=== PATIENT | female | born 1945 | race Caucasian/White ===

== ENCOUNTER 2020-12-10 08:11 | Outpatient (CLI) | payer MEDICARE, SELFPAY ==
--- NOTE | ~2020-12-10 | MM_ITS ---
EXAMINATION: MM screening stacy BI w bette HISTORY: Screening TECHNIQUE: Craniocaudal and mediolateral oblique 3-D tomosynthesis images were obtained and synthetic 2-D images were generated. CAD analysis was submitted and interpreted. COMPARISON: Comparison to multiple prior studies sequentially, with oldest reviewed study dated 09/26. BREAST PARENCHYMAL COMPOSITION: There are scattered areas of fibroglandular density. FINDINGS: There is a developing cluster of calcifications in the upper outer quadrant of the left christy ast which have increased in number and density. The right breast is stable without evidence for malig vero. IMPRESSION: 1. Developing left breast calcifications. 2. Magnification views are recommended. BI-RADS Category 0: Incomplete: Needs additional imaging evaluation. Reviewed, dictated and finalized at location A.
== END 2020-12-10 08:12 | disposition home or self-care (01) ==
LOC: ANHIMG 08:14
PROVIDERS: PCP Family Medicine; Visit Provider Family Medicine
DX: Z12.31 Encounter for screening mammogram for malignant neoplasm of breast (principal); R92.8 Other abnormal and inconclusive findings on diagnostic imaging of breast
CPT/HCPCS: 77063; 77067

== ENCOUNTER 2021-01-04 13:37 | Outpatient (CLI) | payer MEDICARE, SELFPAY ==
--- NOTE | ~2021-01-04 | MMUS_ITS ---
EXAMINATION: MM diagnostic mammo unilat LT, US breast LT limited HISTORY: Calcifications, upper outer quadrant of left breast TECHNIQUE: Additional 3-D ML tomosynthesis images of the left breast were performed and synthetic 2-D images were generated. Magnification ML, MLO and cc views of upper outer quadrant CAD analysis was s ubmitted and interpreted. High resolution upper outer quadrant left breast ultrasound was performed. COMPARISON: 05/01/2018 diagnostic left mammogram and limited left breast ultrasound 05/05/2019 left digital screening mammogram 05/15/2019 diagnostic left mammogram 12/10/2020 bilateral digital screening mammogram BREAST PARENCHYMAL COMPOSITION: There are scattered areas of fibroglandular density. FINDINGS: MAMMOGRAPHIC FINDINGS: A cluster of grouped microcalcifications is again noted in the upper outer quadrant of the left breas t is apparent relatively stable compared to 05/05/2019 and were present in 2018 as well. These are li nehemias superficial microcalcifications of fibroadenoma. Ultrasound examination was performed to exclude any upper outer quadrant left breast suspicious mass. ULTRASOUND: There is a 2 mm hypoechoic circumscribed lesion without internal vascularity or posterior shadowing i n the subareolar area of the left breast, probably benign. No other suspicious mass or shadowing is detected. IMPRESSION: 1. Probably benign findings 2. 6 month diagnostic left mammogram and left breast ultrasound follow-up are recommended. BI-RADS category 3, probably benign findings. Reviewed, dictated and finalized at location A. IMPRESSION: 1. Probably benign findings 2. 6 month diagnostic left mammogram and left breast ultrasound follow-up are r ecommended. BI-RADS category 3, probably benign findings.
== END 2021-01-04 13:38 | disposition home or self-care (01) ==
LOC: ANHIMG 13:38
PROVIDERS: PCP Family Medicine; Visit Provider Family Medicine
DX: R92.0 Mammographic microcalcification found on diagnostic imaging of breast (principal)
CPT/HCPCS: 76642; 77065

== ENCOUNTER 2021-07-10 13:52 | Outpatient (CLI) | payer MEDICARE, SELFPAY ==
--- NOTE | ~2021-07-10 | MMUS_ITS ---
EXAMINATION: MM diagnostic stacy LT w bette, US breast LT limited HISTORY: Follow-up left breast calcifications and mass TECHNIQUE: Additional 3-D tomosynthesis images of the left breast were performed and synthetic 2-D im ages were generated. CAD analysis was submitted and interpreted. High resolution Limited left breast ultrasound was performed. COMPARISON: Comparison to multiple prior studies sequentially, with oldest reviewed study dated 10/03. BREAST PARENCHYMAL COMPOSITION: Breast composed of scattered areas of fibroglandular density FINDINGS: MAMMOGRAPHIC FINDINGS: There are no suspicious masses or architectural distortion. There is a cluster of indeterminate calci fications in the upper outer quadrant of the left breast which are not significantly changed from vicky or examination allowing for technique. ULTRASOUND: Limited left breast ultrasound: In the subareolar location of the left breast there is a 2 mm cyst. N o suspicious masses to suggest malignancy. No suspicious masses to suggest malignancy. IMPRESSION: 1. Probable benign left breast calcifications. 2. Recommend 6 month follow-up diagnostic left mammogram BI-RADS category 3, probably benign findings. Reviewed, dictated and finalized at location A. L [employer]ER IMPRESSION: 1. Probable benign left breast calcifications. 2. Recommend 6 month follow-up diagnostic left mammogram BI-RADS category 3, probably benign findings.
== END 2021-07-10 13:53 | disposition home or self-care (01) ==
LOC: ANHIMG 13:53
PROVIDERS: PCP Family Medicine; Visit Provider Family Medicine
DX: R92.8 Other abnormal and inconclusive findings on diagnostic imaging of breast (principal)
CPT/HCPCS: 76642; 77061; 77065; G0279

== ENCOUNTER 2022-01-18 13:19 | Outpatient (CLI) | payer MEDICARE, SELFPAY ==
--- NOTE | ~2022-01-18 | MM_ITS ---
EXAMINATION: MM diagnostic stacy BI w bette HISTORY: Follow-up left breast calcifications TECHNIQUE: Additional 3-D tomosynthesis images of the breasts were performed and synthetic 2-D images were generated. CAD analysis was submitted and interpreted. COMPARISON: Comparison to multiple prior studies sequentially, with oldest reviewed study dated 04/15. BREAST PARENCHYMAL COMPOSITION: Breast composed of scattered areas of fibroglandular density FINDINGS: The right breast is stable without evidence for malignancy. Clustered indeterminate calcifi cations in the upper outer quadrant of the left breast are not significantly changed from prior exami nation. No new masses or architectural distortion. IMPRESSION: 1. Stable likely benign left breast calcifications, upper outer quadrant. 2. Recommend 6 month follow-up diagnostic left mammogram BI-RADS category 3, probably benign findings. Reviewed, dictated and finalized at location A.
== END 2022-01-18 13:20 | disposition home or self-care (01) ==
PROVIDERS: PCP Family Medicine; Visit Provider Nurse Practitioner Gerontology
DX: R92.8 Other abnormal and inconclusive findings on diagnostic imaging of breast (principal)
CPT/HCPCS: 77062; 77066; G0279

== ENCOUNTER 2022-08-22 13:06 | Outpatient (CLI) | payer MEDICARE, SELFPAY ==
--- NOTE | ~2022-08-22 | MMUS_ITS ---
EXAMINATION: MM diagnostic stacy LT w bette, US breast LT limited HISTORY: Six-month follow-up of microcalcifications TECHNIQUE: ML, MLO and CC 3-D tomosynthesis images of the left breast were performed and synthetic 2- D images were generated. ML, MLO and CC magnification views of left breast. CAD analysis was submitte d and interpreted. High resolution breast ultrasound was performed. COMPARISON: Serial mammographic examinations dating back to 05/05/2019 bilateral screening mammogram BREAST PARENCHYMAL COMPOSITION: There are scattered areas of fibroglandular density. FINDINGS: MAMMOGRAPHIC FINDINGS: There are some granular and a linear grouped microcalcifications in the upper outer quadrant of left breast. These have increased slightly in number since 2019. Ultrasound examination today showed no so nographic abnormality of the upper outer quadrant. Stereotactic biopsy is recommended. ULTRASOUND: Real-time imaging of the upper outer quadrant of the left breast reveals no suspicious mass or shadow ing, cyst or other significant sonographic abnormality. IMPRESSION: 1. Indeterminate grouped microcalcifications, upper outer quadrant of left breast, slightly increased in number since 2018 2. Stereotactic biopsy of upper outer quadrant left breast microcalcifications is recommended BI-RADS category 4, suspicious findings. Dr. Reyes telephoned the report and stereotactic biopsy recommendation of the left breast on August 22, 2022 at 1515 hours to DEISY Graham. Reviewed, dictated and finalized at location A. SPINNER IMPRESSION: 1. Indeterminate grouped microcalcifications, upper outer quadrant of left [address] st, slightly increased in number since 2018 2. Stereotactic biopsy of upper outer quadrant left breast microcalcifications is recommended BI-RADS category 4, suspicious findings. Dr. Reyes telephoned the report and stereotactic biopsy recommendation of the le ft breast on August 22, 2022 at 1515 hours to DEISY Graham.
== END 2022-08-22 13:07 | disposition home or self-care (01) ==
LOC: ANHIMG 13:08
PROVIDERS: PCP Family Medicine; Visit Provider Physician Assistant
DX: R92.8 Other abnormal and inconclusive findings on diagnostic imaging of breast (principal)
CPT/HCPCS: 76642; 77061; 77065; G0279

== ENCOUNTER 2022-08-30 12:34 | Outpatient (CLI) | payer MEDICARE, SELFPAY ==
--- NOTE | ~2022-08-30 | MM_ITS ---
EXAMINATION: MM stereotactic bx LT, MM post biopsy diagnostic LT, MM stereotactic specimen LT, Specim en Radiograph, Tissue Marker Clip Placement, Unilateral Mammogram DATE: 08/30/2022 14:16 (accession [id number]), 08/30/2022 14:18 (accession [id number]), 08/30 14:17 (accession [id number]) INDICATION: Abnormal mammogram: Indeterminate grouped microcalcifications, upper outer left breast. TECHNIQUE AND FINDINGS: The risks and potential benefits of the procedure were discussed with the patient and written informe d consent was obtained. Timeout procedure was performed. The patient was placed in the prone position on the dedicated stereotactic table with the left breast in lateral medial compression, and the area of interest was localized and targeted utilizing digital imaging with stereotaxis. After sterile preparation of the skin, 2 % lidocaine was utilized for local anesthesia at the skin pu ncture site and 2 % lidocaine with epinephrine was utilized for deeper local anesthesia/is about the biopsy site. A [employer]G [employer] vacuum assisted biopsy needle was advanced to the level of the grouped calci fications of interest from a cephalad/caudal/medial/lateral approach utilizing stereotactic guidance and a total of 12 tissue core biopsies were obtained. A specimen radiograph demonstrates that the calcifications of interest are included within the tissue cores. A tissue marker clip was then placed at the biopsy site, but the biopsy marker is more infer ior and medial than expected.. A digital mammographic exposure confirmed the successful deployment o f the biopsy marker. The needle was removed and hemostasis was achieved. A sterile bandage was appl ied. The patient tolerated the procedure well and there is no evidence of significant immediate comp lication. The patient was given verbal as well as written postprocedural instructions prior to disch arge from the department. Tissue cores were submitted to surgical pathology for histologic analysis. A 2-view right unilateral digital mammogram was obtained post procedure, demonstrating the tissue mar ker clip in expected position. IMPRESSION: 1. Successful stereotactic biopsy of upper outer quadrant grouped microcalcifications, followed by tissue marker clip placement. Biopsy marker is more inferior and medial than expected. Please refer to pathology report for histologic analysis. Reviewed, dictated and finalized at Location A. Reviewed, dictated and finalized at location A. T COOPER IMPRESSION: 1. Successful stereotactic biopsy of upper outer quadrant grouped microcalcif ications, followed by tissue marker clip placement. Biopsy marker is more inferior and medial than expected. Please refer to pathology report for histologic analysis. IMPRESSION: 1. Successful stereotactic biopsy of upper outer quadrant grouped microcalcif ications, followed by tissue marker clip placement. Biopsy marker is more inferior and medial than expected. Please refer to pathology report for histologic analysis.
== END 2022-08-30 12:35 | disposition home or self-care (01) ==
PROVIDERS: PCP Family Medicine; Visit Provider Family Medicine
DX: R92.8 Other abnormal and inconclusive findings on diagnostic imaging of breast (principal); Z87.898 Personal history of other specified conditions; R92.0 Mammographic microcalcification found on diagnostic imaging of breast
CPT/HCPCS: 19081; 77065; 88305; A4648

== ENCOUNTER 2022-12-05 11:50 | Outpatient (CLI) | payer MEDICARE, SELFPAY ==
--- NOTE | 2022-12-05 13:01 | ECG_ITS ---
Measurements Intervals [place] Rate: 54 P: -22 [place]: 182 QRS: -13 QRSD: 71 T: 41 QT: 414 QTc: 394 Interpretive Statements SINUS BRADYCARDIA BASELINE ARTIFACT- I, II, III, AVR, AVL, AVF BORDERLINE ECG NO PREVIOUS ECG AVAILABLE FOR COMPARISON Electronically Signed On 12-05-2022 13:16:15 CDT by Bc Mcmahan D.O.
[2022-12-05 13:21] LABS: Basophils Absolute Auto 0.1 K/mm3 (0.0-0.1); Basophils Percent Auto 0.9 % (0.2-1.2); Eosinophils Absolute Auto 0.1 K/mm3 (0-0.3); Eosinophils Percent Auto 2.3 % (0-4.4); Hematocrit 45.8 % (37.0-47.0); Hemoglobin 14.5 g/dL (12.0-15.0); Immature Granulocyte Absolute 0.01 K/mm3 (0.00-0.031); Immature Granulocyte Percent A 0.2 % (0-0.5); Lymphocytes Absolute Auto 1.53 K/mm3 (0.9-3.2); Lymphocytes Percent Auto 26.8 % (18.3-44.2); Mean Corpuscular HGB Conc 31.7 g/dl (32-36); Mean Corpuscular Hemoglobin 29.5 pg (26-34); Mean Corpuscular Volume 93.3 fl (80-100); Mean Platelet Volume 9.7 fl (7.4-10.4); Monocytes Absolute Auto 0.5 K/mm3 (0.1-0.6); Monocytes Percent Auto 8.1 % (2.6-8.5); Neutrophils Absolute Auto 3.5 K/mm3 (1.3-6.7); Neutrophils Percent Auto 61.7 % (45.5-73.1); Platelet Count Result 225 k/mm3 (150-375); Red Blood Count 4.91 M/mm3 (4.2-5.4); White Blood Count 5.7 K/mm3 (4.5-10.0)
[2022-12-05 13:34] LABS: Alanine Aminotransferase 19 U/L (6-35); Albumin Level 4.2 g/dL (3.5-5.1); Alkaline Phosphatase 87 U/L (38-126); Anion Gap 3 mmol/L (8-16); Aspartate Amino Transferase 24 U/L (14-36); Bilirubin,Total 0.5 mg/dL (0.2-1.3); Blood Urea Nitrogen 17 mg/dL (7-17); Carbon Dioxide 32 mmol/L (22-30); Chloride 105 mmol/L (98-107); Estimated Glomerular Filt Rate > 60; Glucose 111 mg/dL (65-110); Potassium 5.3 mmol/L (3.4-5.0); Sodium 140 mmol/L (137-145)
[2022-12-05 13:37] LABS: Partial Thromboplastin Time 25.5 SECONDS (22.3-36.8); Prothrombin Time 13.2 Seconds (11.1-14.7)
== END 2022-12-05 11:51 | disposition home or self-care (01) ==
LOC: ANHSURGERY 11:59
PROVIDERS: PCP Family Medicine; Visit Provider Urology
DX: N81.2 Incomplete uterovaginal prolapse (principal); I10 Essential (primary) hypertension; Z01.818 Encounter for other preprocedural examination; R94.31 Abnormal electrocardiogram [ECG] [EKG]
CPT/HCPCS: 36415; 80053; 85025; 85610; 85730; 86850; 86900; 86901; 93005

== ENCOUNTER 2022-12-17 01:39 | Day surgery (SDC) | payer MEDICARE, SELFPAY ==
[2022-12-05 12:11] VITALS: BP 153/76; PULSE 61; RESP 16; TEMP 37.1; O2SAT 96; BMI 22.9
--- NOTE | 2022-12-05 12:26 | PC.NURSE ---
Addendum entered by Mitzi Orona RN 12/05/22 12:58: AMEND-TYPO--HOLD ALL VITAMINS/SUPPLEMENTS 7 DAYS PRE-OP PER DR CANTU(PER PATIENT). LAST DOSE REMAINS ON 12/10/22. Original Note: Report to the Outpatient Waiting Room, entrance under the green pavilion located off [address], at time __6:00AM on date __12/17/22 . Planned Procedure Time: __7:30AM . Time changes happen often and if your time is changed the preop area will call you the afternoon before. - You and your visitor will be asked to self-screen and do not enter if you have any COVID symptoms. - A mask is optional within the hospital at this time. Patients may have clear liquids (water, carbonated beverages, clear teas, apple juice) until 3 hours prior to surgery with a maximum of 20 ounces. - No food from midnight until time of surgery Take the following medications with a SIP of water the morning of surgery: ___LEVOTHYROXINE, METOPROLOL, ALPRAZOLAM NEEDED____ DO NOT STOP ANY OF YOUR OTHER PRESCRIPTION MEDICATIONS PRIOR TO SURGERY ?EXCEPT THE FOLLOWING Medications to discontinue per physician __HOLD ALL VITAMINS/SUPPLEMENTS 3 DAYS PRE-OP Date to take last dose____12/10/22 Please no make-up, nail kenyan, hairspray, perfume, deodorant, or body powder the day of surgery. No jewelry (including any body piercings) or valuables the day of surgery, leave them at home. Please take a shower or bath the night before, or the morning of, surgery with an antibacterial soap. Wear comfortable, loose fitting clothing. Children are encouraged to wear pajamas. - Jewelry must be removed prior to entering the operating room. Rings and piercings that are not removed may be cut off. - The hospital will not accept responsibility for valuables. - Please leave all valuables, including medications, at home the day of surgery. If you are going home after surgery, a licensed bulk delivery driver must drive you home. - NO public transportation without another adult if you receive anesthesia. - We recommend that an adult stay with you for 24 hours following discharge. - We also recommend that you do not drive, make important decision, drink alcoholic beverages, or take any drugs that were not prescribed by your health care provider for at least 24 hours after your discharge time. Follow any additional instructions given to you from your surgeon. If you or anyone in your household have experienced Covid symptoms in the past week, please notify your surgeon or the nurse liaison at the phone number below for possible testing. Telephone instructions given to ___PATIENT and asked if any additional questions and then verbalized understanding. Patient advised to call surgeon office or pre surgery nurse liaison [phone] if any additional questions.
--- NOTE | 2022-12-15 11:33 | PM.IMHP ---
H&P: HPI History of Present Illness Date/Time: 12/15/22 11:33 Chief Complaint: Pelvic organ prolapse Narrative: 77-year-old with uterine prolapse. No stress incontinence by history or urodynamic Review of Systems Review of Systems: All systems reviewed & are unremarkable except as noted in HPI and below PMFSH Past Medical History Medical History Abnormal mammogram Annual physical exam Anxiety disorder, unspecified Atrial tachycardia Benign essential HTN Calcaneal spur of right foot Calculus of gallbladder Chronic erosive gastritis Chronic erosive gastritis Contact dermatitis and eczema due to plant Dizziness RAMEY (dyspnea on exertion) Essential (primary) hypertension JASMIN (generalized anxiety disorder) Gastritis, unspecified, without bleeding Hyperlipidemia Hypothyroidism (acquired) Hypothyroidism (acquired) Left breast mass Mixed hyperlipidemia Mixed hyperlipidemia Pain of right heel Postmenopausal Screening for breast cancer SOB (shortness of breath) Vitamin D deficiency Family History Family History Father Family history of premature coronary heart disease, Onset Age: 49 Patient's father is Family history of cardiovascular disease Mother Hypertension Acute myocardial infarction Social History Social History Social History: Smoking status: Never smoker Second hand tobacco smoke exposure: No Alcohol intake: current Drinks per week: 3 Alcohol use details: Occasionally Substance use: never Substance use type: does not use Living arrangements: with family Additional living arrangements comments: [facility] Occupation/Education: retired Gender identity (if verbalized by the patient): Female Sexual Orientation (if Verbalized by the Patient): Straight or Heterosexual Spiritual care concerns: No Meds Home Medications and Allergies Home Medications Medication Instructions Recorded Confirmed Type metoprolol tartrate 25 mg tablet 25 mg PO BID #180 tabs 08/22/22 12/05/22 Rx alprazolam 0.25 mg tablet 0.25 mg PO BID PRN Anxiety 12/05/22 12/05/22 History atorvastatin 20 mg tablet 20 mg PO HS 12/05/22 12/05/22 History calcium 600 mg capsule 1,200 mg PO DAILY 12/05/22 12/05/22 History ibuprofen 200 mg capsule 200 mg PO Q6H PRN Pain 12/05/22 12/05/22 History levothyroxine 25 mcg tablet 25 mcg PO QAM 12/05/22 12/05/22 History lisinopril 20 mg tablet 20 mg PO QAM 12/05/22 12/05/22 History melatonin 3 mg capsule 3 mg PO HS PRN Insomnia 12/05/22 12/05/22 History omeprazole 20 mg capsule,delayed 20 mg PO QAM 12/05/22 12/05/22 History release Allergies Allergy/AdvReac Type Severity Reaction Status Date / Time doxycycline AdvReac Mild vomiting Verified 12/05/22 12:05 Exam Narrative: cystocele +3 loss of apical support noted Assessment and Plan Assessment and plan (1) Uterine prolapse: Code(s): N81.4 - Uterovaginal prolapse, unspecified Status: Acute Assessment and Plan: robotic supracervical hysterectomy with sacral colpopexy. Understands risks of bleeding, infection damage to surrounding organs, damage to the urinary tract, recurrence of prolapse, postoperative voiding dysfunction including incontinence and retention, recurrence of prolapse, diskitis, hip and leg pain. She agrees to proceed
[2022-12-17] VITALS (9 sets, daily range): BP systolic 127–169; BP diastolic 54–85; PULSE 48–81; RESP 12–18; TEMP 36.1–37; O2SAT 95–100
[2022-12-17] MEDS: ACETAMINOPHEN 500 MG TABLET 1000 MG PO (06:37)
[2022-12-17] MEDS: LACTATED RINGERS 1,000 ML 30 ML IV CONT ×2 (06:40→10:14)
--- NOTE | 2022-12-17 06:49 | WPDANESEPPF ---
Anes - Initial Pre Proc Eval Procedure: Operation Date: 12/17/22 07:30 Proposed Procedures p Robotic Sacrocolpopexy - Jarad Alvarado MD s Urethral Sling - Jarad Alvarado MD s Robotic Assisted Supracervical Hysterectomy, Bilateral Salpingo-oophorectomy - Sean Avery MD Date/Time: 12/17/22 06:49 Surgeon: Jarad Alvarado MD Pre Op Diagnosis: Uterine Prolapse, Midline Cystocele Patient Data Age: 77 Gender: F Height: 1.64 m Weight: 61.6 kg Last Vital Signs Temp 37.1 C 12/05/22 12:11 Pulse 61 12/05/22 12:11 Resp 16 12/05/22 12:11 BP 153/76 H 12/05/22 12:11 Pulse Ox 96 12/05/22 12:11 O2 Del Method Room Air 12/05/22 12:11 Allergies Allergy/AdvReac Type Severity Reaction Status Date / Time doxycycline AdvReac Mild vomiting Verified 12/17/22 06:22 Home Medications Medication Instructions Recorded Confirmed Type metoprolol tartrate 25 mg tablet 25 mg PO BID #180 tabs 08/22/22 12/17/22 Rx alprazolam 0.25 mg tablet 0.25 mg PO BID PRN Anxiety 12/05/22 12/05/22 History atorvastatin 20 mg tablet 20 mg PO HS 12/05/22 12/17/22 History calcium 600 mg capsule 1,200 mg PO DAILY 12/05/22 12/17/22 History ibuprofen 200 mg capsule 200 mg PO Q6H PRN Pain 12/05/22 12/17/22 History levothyroxine 25 mcg tablet 25 mcg PO QAM 12/05/22 12/17/22 History lisinopril 20 mg tablet 20 mg PO QAM 12/05/22 12/17/22 History melatonin 3 mg capsule 3 mg PO HS PRN Insomnia 12/05/22 12/17/22 History omeprazole 20 mg capsule,delayed 20 mg PO QAM 12/05/22 12/17/22 History release Patient hx anesthesia problems: none Family hx anesthesia problems: none Results Review: All pre-operative results and documents have been reviewed as part of the pre-operative evaluation. [facility] Past Medical History Medical History Abnormal mammogram Annual physical exam Anxiety disorder, unspecified Atrial tachycardia Benign essential HTN Calcaneal spur of right foot Calculus of gallbladder Chronic erosive gastritis Chronic erosive gastritis Contact dermatitis and eczema due to plant Dizziness RAMEY (dyspnea on exertion) Essential (primary) hypertension JASMIN (generalized anxiety disorder) Gastritis, unspecified, without bleeding Hyperlipidemia Hypothyroidism (acquired) Hypothyroidism (acquired) Left breast mass Mixed hyperlipidemia Mixed hyperlipidemia Pain of right heel Postmenopausal Screening for breast cancer SOB (shortness of breath) Vitamin D deficiency Surgical History Surgical History (Updated 12/17/22 @ 06:52 by Vlad Rojo MD) H/O thyroidectomy Family History Family History Father Family history of premature coronary heart disease, Onset Age: 49 Patient's father is Family history of cardiovascular disease Mother Hypertension Acute myocardial infarction Social History Social History Social History: Smoking status: Never smoker Second hand tobacco smoke exposure: No Alcohol intake: current Drinks per week: 3 Alcohol use details: Occasionally Substance use: never Substance use type: does not use Living arrangements: with family Additional living arrangements comments: [facility] Occupation/Education: retired Gender identity (if verbalized by the patient): Female Sexual Orientation (if Verbalized by the Patient): Straight or Heterosexual Spiritual care concerns: No Anes - Eval Final PreProcedure Day of Procedure 12/17/22 06:49 Patient weight: normal Heart: regular rate and rhythm Lungs: clear to auscultation Airway: Mallampati scale class II Neurological: alert and oriented Last oral intake: >/= 8 hours ASA classification: II Emergent: no Anesthetic plan: proceed Anesthesia type and monitoring: general ETT and standard monitoring Results Review: All pre-operative results a
--- NOTE | 2022-12-17 07:12 | WPDHPUPDATE1 ---
History and Physical Update Update Date/Time: 12/17/22 07:12 History and Physical has been reviewed, including an updated exam of the patient. There are NO changes in the patient's condition. Risks, benefits, and alternatives have been discussed and questions answered. Patient agrees to proceed with procedure.
[2022-12-17] MEDS: KETOROLAC 15 MG/ML VIAL (*BKC) IV PUSH (07:14)
--- NOTE | 2022-12-17 07:20 | PM.IMHP ---
H&P: HPI History of Present Illness Date/Time: 12/17/22 07:20 Chief Complaint: Here for hysterectomy Narrative: 77 y/o with intermittent bulge sensation. She has no vaginal bleeding. It takes a long time to empty the bladder. She desires surgical management of her problem. Review of Systems Review of Systems: All systems reviewed & are unremarkable except as noted in HPI and below PMFSH Past Medical History Medical History Abnormal mammogram Annual physical exam Anxiety disorder, unspecified Atrial tachycardia Benign essential HTN Calcaneal spur of right foot Calculus of gallbladder Chronic erosive gastritis Chronic erosive gastritis Contact dermatitis and eczema due to plant Dizziness RAMEY (dyspnea on exertion) Essential (primary) hypertension JASMIN (generalized anxiety disorder) Gastritis, unspecified, without bleeding Hyperlipidemia Hypothyroidism (acquired) Hypothyroidism (acquired) Left breast mass Mixed hyperlipidemia Mixed hyperlipidemia Pain of right heel Postmenopausal Screening for breast cancer SOB (shortness of breath) Vitamin D deficiency Surgical History Surgical History H/O thyroidectomy Family History Family History Father Family history of premature coronary heart disease, Onset Age: 49 Patient's father is Family history of cardiovascular disease Mother Hypertension Acute myocardial infarction Social History Social History Social History: Smoking status: Never smoker Second hand tobacco smoke exposure: No Alcohol intake: current Drinks per week: 3 Alcohol use details: Occasionally Substance use: never Substance use type: does not use Living arrangements: with family Additional living arrangements comments: [facility] Occupation/Education: retired Gender identity (if verbalized by the patient): Female Sexual Orientation (if Verbalized by the Patient): Straight or Heterosexual Spiritual care concerns: No Meds Home Medications and Allergies Home Medications Medication Instructions Recorded Confirmed Type metoprolol tartrate 25 mg tablet 25 mg PO BID #180 tabs 08/22/22 12/17/22 Rx alprazolam 0.25 mg tablet 0.25 mg PO BID PRN Anxiety 12/05/22 12/05/22 History atorvastatin 20 mg tablet 20 mg PO HS 12/05/22 12/17/22 History calcium 600 mg capsule 1,200 mg PO DAILY 12/05/22 12/17/22 History ibuprofen 200 mg capsule 200 mg PO Q6H PRN Pain 12/05/22 12/17/22 History levothyroxine 25 mcg tablet 25 mcg PO QAM 12/05/22 12/17/22 History lisinopril 20 mg tablet 20 mg PO QAM 12/05/22 12/17/22 History melatonin 3 mg capsule 3 mg PO HS PRN Insomnia 12/05/22 12/17/22 History omeprazole 20 mg capsule,delayed 20 mg PO QAM 12/05/22 12/17/22 History release Allergies Allergy/AdvReac Type Severity Reaction Status Date / Time doxycycline AdvReac Mild vomiting Verified 12/17/22 06:22 Vital Signs Vital Signs - 24 hr 12/17/22 06:40 Temperature 36.4 C Pulse Rate 62 Respiratory Rate 16 Blood Pressure 152/75 H Pulse Oximetry 98 Oxygen Delivery Room Air Exam Const: Orientation/consciousness: patient oriented x3 Other: Well-developed, well-nourished female in no acute distress. Neck: Thyroid: thyroid normal Lymphatic: no lymphadenopathy noted (in neck, axilla or inguinal nodes) Resp: Effort & Inspection: normal respiratory effort Auscultation: clear to auscultation bilaterally Cardio: Rate: regular rate Rhythm: regular rhythm Heart sounds: S1 normal heart sound present and S2 normal heart sound present GI: Other: ABD: Soft, nontender, nondistended. No guarding or rebound tenderness. No hepatosplenomegaly. : General: Yes no CVA tenderness Other: External genitalia: normal female hair dist
--- NOTE | 2022-12-17 07:24 | WPDHPUPDATE1 ---
History and Physical Update Update Date/Time: 12/17/22 07:24 History and Physical has been reviewed, including an updated exam of the patient. There are NO changes in the patient's condition. Risks, benefits, and alternatives have been discussed and questions answered. Patient agrees to proceed with procedure.
[2022-12-17] MEDS: ceFAZolin 2 GM/D5W 50 ML 2 GM/50 ML BAG IVPB (07:30)
[2022-12-17] MEDS: metroNIDAZOLE 500 MG/ISO 100ML 500 MG/100 ML BAG 100 MG IVPB (07:49)
--- NOTE | 2022-12-17 08:26 | P.OP_ITS ---
Procedure Note - Detailed Date of Procedure 12/17/22 Pre-op Diagnosis Symptomatic pelvic organ prolapse Post-op Diagnosis Same Procedure Performed Robotic assisted supracervical hysterectomy with bilateral salpingooophorectomy. Surgeon Sean Avery MD Anesthesia General Findings Small subserosal myoma. Otherwise, normal-appearing uterus, tubes and ovaries. Description of Procedure The patient was taken to the operating room where general endotracheal ane sthesia was administered. She was prepared and draped in the usual sterile fashion in the dorsal lithotomy position. The bladder was drained with a Bill catheter. Dr. Alvarado placed laparoscopic ports -- please see his note for details. I assumed the console. The ureters were visualized bilaterally. The round ligament on the right was divided. The infundibulopelvic ligament was divided. The broad ligament was divided, skeletonizing and dividing the uterine artery on the right. The bladder was reflected away. The left side was similarly dissected. The uterus was amputated from the cervix. The pelvis was irrigated using warmed normal saline. Rigorous hemostasis was assured. Dr. Alvarado then assumed the console and will record his portion of the procedure under a separate cover. I was present and scrubbed through my entire portion of the procedure. Implants None Estimated Blood Loss 10 Drains Yes (bill) Packing No Pathology Yes (Uterus, bilateral tubes and ovaries.) Complications None Condition Stable Disposition PACU
--- NOTE | 2022-12-17 10:01 | W.PM.PROC2 ---
Procedure Note - Detailed Date of Procedure 12/17/22 Pre-op Diagnosis Uterine Prolapse, Midline Cystocele Post-op Diagnosis Same Procedure Performed Robotic assisted laparoscopic sacral colpopexy Cystoscopy Surgeon Jarad Alvarado MD Anesthesia General Indications This is a woman with uterine prolapse without stress incontinence. She desires surgical correction. She is here for the above. She understands risks of bleeding, infection, diskitis, damage to surrounding organs, bowel injury, bowel obstruction, mesh related complications including exposure and extrusion, postoperative voiding dysfunction including incontinence and retention, need for ancillary procedures, dyspareunia, recurrence of prolapse, and other perioperative intraoperative postoperative complications. She agrees to proceed. Findings See below Description of Procedure She was correctly identified. Informed consent obtained. She from the operating room. She was given general anesthesia. She was given appropriate perioperative antibiotics. She was placed a low lithotomy position. Pressure points were padded. A time-out performed. I marked out the skin 3 fingerbreadths cephalad to the umbilicus. I anesthetized the skin. I incised the skin. I dissected down to the fascia. I grasped the fascia with Hipolito clamps. I entered the fascia sharply in a See type technique. I placed sutures for later fascial closure. I placed a midline trocar. I examined the abdomen. There is no sign of any injury. Under direct vision I placed 2 additional trocars in the right upper quadrant and 2 additional trocars the left upper quadrant. She was placed in steep Trendelenburg. The robot was docked. Her crop puller completed their portion of the procedure. Please see that operative report for details. I then sat at the console. The Sizer in the vagina created plane on the anterior and posterior vaginal wall. I took great care not to injure the vagina, bladder, or rectum. Of note the tissue was quite thin posteriorly. I introduced the mesh into the abdomen. I sewed the anterior leaflet of mesh on the anterior vaginal wall. I sewed the posterior leaflet of mesh on the posterior vaginal wall. This was done with several sutures of 2 0 [place]-Jonathan. I took great care this area due to the thinness of the vaginal wall. I took great care not to go through and through with the suture. I reflected the colon laterally. I opened the posterior peritoneum over the sacral promontory. I carried this into the cul-de-sac. I freed up the edges for later retroperitonealization. I located the anterior longitudinal ligament the sacrum. I cleaned off all fatty tissues. I then tensioned my mesh appropriately. I did a vaginal exam the bedside. I assured prolapse reduction without undue tension. I then sewed the proximal leaflet of mesh onto the anterior longitudinal ligament of the sacrum with several sutures of 2 0 [place]-Jonathan. I then used a 2 0 Monocryl to completely and meticulously retroperitonealized all mesh. I allowed the colon to go back to its normal anatomic location. There is no sign of any impingement. The specimen was then removed. All ports removed. Fascia was tied down. Skin was closed with Monocryl and surgical glue. I then performed cystoscopy. There was no tumors or surgical artifact. Both ureters were seen to excrete clear yellow urine. There is no surgical artifact in the bladder or urethra. I cut the excess sling material. Close incision with glue. She was awakened and transferred to PACU in stable condition. Implants Sacral colpopexy mesh Estimated Blood Loss 20 Packing No Pathology None sent Complications No immediate complications Condition Stable Disposition PACU
--- NOTE | 2022-12-17 11:40 | PC.NURSE ---
This patient, Delia Constantino, was received from PACU on 12/17/22 at 1140. Patient/family oriented to unit policies and routines
[2022-12-17] MEDS: KCL 20 MEQ/D5/0.45% SOD CHL 1,000 ML 100 ML IV CONT ×2 (11:55→22:47)
--- NOTE | 2022-12-17 13:20 | PC.NURSE ---
Pt tolerated clear liquids well, she would like to advance to regular diet.
[2022-12-17] MEDS: lisinopriL 20 MG TABLET PO (13:24)
[2022-12-17] MEDS: ceFAZolin 1 GM/NS 50 ML 1 GM/50 ML BAG IVPB (16:20)
[2022-12-17] MEDS: ACETAMINOPHEN 325 MG TABLET 650 MG PO (16:25)
[2022-12-17] MEDS: MELATONIN 3 MG TABLET PO (22:47)
[2022-12-18 00:10] VITALS: BP 116/64; PULSE 81; RESP 14; TEMP 36.7; O2SAT 95
[2022-12-18 00:13] VITALS: PULSE 81
[2022-12-18] MEDS: METOPROLOL TARTRATE 25 MG TABLET PO ×2 (00:13→09:09)
[2022-12-18] MEDS: ACETAMINOPHEN 325 MG TABLET 650 MG PO ×2 (00:14→09:11)
[2022-12-18] MEDS: ceFAZolin 1 GM/NS 50 ML 1 GM/50 ML BAG IVPB ×2 (00:15→08:34)
[2022-12-18 07:02] VITALS: BP 120/65; PULSE 70; RESP 14; TEMP 36.3; O2SAT 98
[2022-12-18 07:30] VITALS: BP 119/63; PULSE 61; RESP 16; TEMP 36.7; O2SAT 97
--- NOTE | 2022-12-18 07:40 | WPDANESPN ---
Anes - Prog Note Post-Op Date/Time: 12/18/22 07:40 Vital Signs: Last Vital Signs Temp 36.3 C L 12/18/22 07:02 Pulse 70 12/18/22 07:02 Resp 14 12/18/22 07:02 BP 120/65 12/18/22 07:02 Pulse Ox 98 12/18/22 07:02 O2 Del Method Room Air 12/17/22 11:20 O2 Flow Rate 8 12/17/22 10:35 Pain Score (VAS): 0 I/O: Intake & Output 12/17/22 12/17/22 12/18/22 15:59 23:59 07:59 Intake Total 1550 1300 Output Total 350 750 525 Balance 1200 550 -525 Patient Feedback: Patient satisfied with anesthetic care.
--- NOTE | 2022-12-18 08:11 | PM.GYNPNOP ---
MUSHROOM CUTTER - A/P Assessment and plan (1) Uterine prolapse: Code(s): N81.4 - Uterovaginal prolapse, unspecified Status: Acute Assessment and Plan: A: POD#1, s/p robotic assisted supracervical hysterectomy with BSO, sacral colpopexy. Doing well. P: Plan home today to f/u with me in 3 weeks, Dr. Alvarado in 6 weeks. Postoperative Procedures: Procedures Operation Date: 12/17/22 07:30 Actual Procedure Side Surgeon p Robotic Sacrocolpopexy Not Applicable Jarad Alvarado MD s Robotic Assisted Supracervical Hysterectomy, Bilateral Salpingo-oophorectomy Bilateral Sean Avery MD Postoperative day: 1 Time Spent With Patient Time with patient: less than 15 minutes MUSHROOM CUTTER- PN:Subj Post-Op Subjective Date/time seen: 12/18/22 08:11 Interval history: Pain OK. Tolerating diet. Isaac out. Exam Narrative: AVSS I/O OK ABD soft, nontender. Incisions c/d/i. EXT nontender MUSHROOM CUTTER - PN: Obj Data Vital Signs Vital Signs: Vital Signs - 24 hr 12/17/22 10:20 12/17/22 10:35 12/17/22 10:50 Temperature 36.1 C L Pulse Rate 75 48 L 56 L Respiratory Rate 16 16 13 Blood Pressure 169/85 H 168/71 H Pulse Oximetry 100 100 97 Oxygen Delivery Simple Face Mask Simple Face Mask Room Air Oxygen Flow Rate 8 8 12/17/22 11:05 12/17/22 11:20 12/17/22 11:55 Temperature 36.5 C Pulse Rate 50 L 57 L 54 L Respiratory Rate 18 12 16 Blood Pressure 151/64 H 147/66 H 142/54 H Pulse Oximetry 96 96 95 Oxygen Delivery Room Air Room Air Oxygen Flow Rate 12/17/22 16:20 12/18/22 00:13 12/17/22 20:00 Temperature 36.4 C 37.0 C Pulse Rate 73 81 81 Respiratory Rate 16 18 Blood Pressure 135/79 127/70 Pulse Oximetry 97 95 Oxygen Delivery Oxygen Flow Rate 12/18/22 00:10 12/18/22 07:02 Temperature 36.7 C 36.3 C L Pulse Rate 81 70 Respiratory Rate 14 14 Blood Pressure 116/64 120/65 Pulse Oximetry 95 98 Oxygen Delivery Oxygen Flow Rate Intake/Output Intake/Output: Intake & Output 12/15/22 12/16/22 12/17/22 12/18/22 23:59 23:59 23:59 23:59 Intake Total 2850 Output Total 1100 525 Balance 1750 -525 Meds/Results Medications: Active Medications Generic Name Dose Route Start Last Admin Trade Name Freq PRN Reason Stop Dose Admin Acetaminophen 650 mg 12/17/22 11:34 12/18/22 00:14 Acetaminophen 325 Mg Tablet PO 650 mg Q4H PRN Administration Mild Pain (1-3) or Fever Hydrocodone Bitart/Acetaminophen 1 tab 12/17/22 11:34 Hydrocodone/Acetaminophen (*Crx) 5-325 Mg Tablet PO Q4H PRN Pain Rated 4-5 Alprazolam 0.25 mg 12/17/22 11:34 Alprazolam (*Crx) 0.25 Mg Tablet PO BID PRN Anxiety Cephalexin HCl 500 mg 12/18/22 09:00 Cephalexin 500 Mg Capsule PO QID BALA Diphenhydramine HCl 25 mg 12/17/22 11:34 Diphenhydramine Hcl Inj 50 Mg/Ml Vial IV PUSH Q6H PRN Itching Docusate Sodium 100 mg 12/18/22 09:00 Docusate Sodium 100 Mg Capsule PO DAILY BALA Enoxaparin Sodium 30 mg 12/18/22 09:00 Enoxaparin 30 Mg/0.3 Ml Syringe SUB-Q DAILY BALA Potassium Chloride/Dextrose/Sod Cl 1,000 mls @ 100 mls/hr 12/17/22 11:34 12/17/22 22:47 Kcl 20 Meq/D5/0.45% Sod Chl IV CONT 100 mls/hr .Q10H BALA Administration Cefazolin Sodium 1 gm in 50 mls @ 100 mls/hr 12/17/22 16:00 12/18/22 00:15 Ancef 1 Gm/Ns 50 Ml IVPB 12/18/22 08:29 100 mls/hr Q8H BALA Administration Ketorolac Tromethamine 15 mg 12/17/22 11:34 Ketorolac 15 Mg/Ml Vial (*Bkc) IV PUSH Q8H PRN Pain Rated 5 or Less Levothyroxine Sodium 25 mcg 12/18/22 06:30 Levothyroxine Sodium 25 Mcg Tablet PO DAILY@0630 BALA Lisinopril 20 mg 12/17/22 12:00 12/17/22 13:24 Lisinopril 20 Mg Tablet PO 20 mg QAM BALA Administration Melatonin 3 mg 12/17/22 11:34 12/17/22 22:47 Melatonin 3 Mg Tablet PO 3 mg HS PRN Administration Insomnia Metoprolol Tartrate 25 mg 12/17/22 21:00 12/18/22
--- NOTE | 2022-12-18 08:13 | PM.DS ---
DS: Admitting Diagnosis Discharge Date 12/18/22 Admitting Diagnosis Symptomatic pelvic organ prolapse DS: Discharge Diagnosis Discharge Diagnosis (1) Uterine prolapse: Code(s): N81.4 - Uterovaginal prolapse, unspecified Status: Acute DS: Summary Hospital Course Hospital Course: Admitted to the hospital on the date of scheduled surgery. She underwent robotic supracervical hysterectomy with BSO and sacral colpopexy. She did well postoperatively and was able to go home on POD1. DS: Data Data Completed and Pending Pending studies at discharge: Pending at discharge 12/17/22 08:56 Surgical [PTH] Routine Discharge Plan Discharge Patient Disposition: Home, Self-Care Discharge Instructions: No lifting >20lb, exercise for 6 weeks No tub bath or pool for 2 weeks No intercurse 6 weeks Stand Alone Forms: General Discharge Instructions Follow-up/Referrals: Sean Avery MD [Physician] - 3 Weeks Discharge Medications: New hydrocodone-acetaminophen 5-325 mg tablet 1 tablet PO Q6H PRN (Reason: pain) Qty: 20 0RF docusate sodium [Colace] 100 mg capsule 100 mg PO BID Qty: 60 0RF Continued calcium 600 mg Capsule 1,200 mg PO DAILY alprazolam 0.25 mg Tablet 0.25 mg PO BID PRN (Reason: Anxiety) atorvastatin 20 mg tablet 20 mg PO HS lisinopril 20 mg tablet 20 mg PO QAM levothyroxine 25 mcg tablet 25 mcg PO QAM omeprazole 20 mg capsule,delayed release(DR/EC) 20 mg PO QAM melatonin 3 mg Capsule 3 mg PO HS PRN (Reason: Insomnia) metoprolol tartrate 25 mg tablet 25 mg PO BID Qty: 180 2RF Held ibuprofen 200 mg Capsule 200 mg PO Q6H PRN (Reason: Pain) Hold Instructions: Resume on 12/20/22.
[2022-12-18] MEDS: LEVOTHYROXINE SODIUM 25 MCG TABLET PO (08:34)
[2022-12-18 09:09] VITALS: PULSE 61
[2022-12-18] MEDS: CEPHALEXIN 500 MG CAPSULE PO (09:09)
[2022-12-18] MEDS: DOCUSATE SODIUM 100 MG CAPSULE PO (09:09)
[2022-12-18] MEDS: PANTOPRAZOLE 40 MG TABLET PO (09:09)
[2022-12-18] MEDS: ENOXAPARIN 30 MG/0.3 ML SYRINGE SUB-Q (09:10)
[2022-12-18] MEDS: lisinopriL 20 MG TABLET PO (09:10)
--- NOTE | 2022-12-18 13:06 | WPDUROPN2 ---
Progress Note: A&P Assessment and Plan (1) Uterine prolapse: Code(s): N81.4 - Uterovaginal prolapse, unspecified Status: Acute Assessment and Plan: Ok to discharge home after she urinates and gets her last dose of antibiotics. Subjective Subjective Date/Time Seen: 12/18/22 13:06 S/P Robotic Assisted Laparoscopic Sacral Colpopexy Patient doing well, shes tolerating diet, activity and urinating without a bill. Post Op day: 1 Review of Systems Cardiovascular: Cardiovascular: Denies chest pain Respiratory: Respiratory: Reports no additional respiratory complaints Gastrointestinal: Gastrointestinal: Denies abdominal pain, Denies nausea and Denies vomiting Genitourinary: Genitourinary: Denies nocturia, Denies dysuria, Denies flank pain, Denies urinary incontinence, Denies urinary hesitancy and Denies urinary urgency Exam Const: General: cooperative and comfortable Resp: Effort & Inspection: normal respiratory effort Cardio: Rate: regular rate GI: Inspection: incision (all well approximated, no drainage, no redness or edema) GI Palp: Yes Soft to palpation and No Tenderness to palpation present (GI) : General: Yes no CVA tenderness Extrem: Right lower extremity: no edema Left lower extremity: no edema Objective Data Vital Signs Vital Signs: Vital Signs - 24 hr 12/17/22 16:20 12/18/22 00:13 12/17/22 20:00 Temperature 97.6 F 98.6 F Pulse Rate 73 81 81 Respiratory Rate 16 18 Blood Pressure 135/79 127/70 Pulse Oximetry 97 95 Oxygen Delivery 12/18/22 00:10 12/18/22 07:02 12/18/22 09:09 Temperature 98.1 F 97.4 F L Pulse Rate 81 70 61 Respiratory Rate 14 14 Blood Pressure 116/64 120/65 Pulse Oximetry 95 98 Oxygen Delivery 12/18/22 07:30 12/18/22 09:15 Temperature 98.1 F Pulse Rate 61 Respiratory Rate 16 Blood Pressure 119/63 Pulse Oximetry 97 Oxygen Delivery Room Air Intake/Output Intake/Output: Intake & Output 12/15/22 12/16/22 12/17/22 12/18/22 23:59 23:59 23:59 23:59 Intake Total 2850 50 Output Total 1100 825 Balance 3580 -765
== END 2022-12-18 11:30 | disposition home or self-care (01) ==
LOC: ANHSURGERY 10:05 → ANHOB2 11:37
PROVIDERS: Obstetrics & Gynecology; PCP Family Medicine; Visit Provider Urology
PROC: (CPT 57425; principal; 2022-12-17 07:30)
PROC: 0UT94ZZ Resection of Uterus, Percutaneous Endoscopic Approach (ICD-10-PCS; CPT 57425; 2022-12-17 07:30)
DX: N81.4 Uterovaginal prolapse, unspecified (principal); D25.2 Subserosal leiomyoma of uterus; D25.1 Intramural leiomyoma of uterus; E78.2 Mixed hyperlipidemia; I10 Essential (primary) hypertension; E89.0 Postprocedural hypothyroidism; E55.9 Vitamin D deficiency, unspecified; F41.1 Generalized anxiety disorder
CPT/HCPCS: 58542; 57425; S2900 ×2; 36415; 80053; 85025; 85610; 85730; 86850; 86900; 86901; 88307; 93005; 99199; A9270; C1781; C9290; J0690; J1100; J1170; J1650; J1885; J2405; J2704; J2710; J3010; J3480; J7030; J7120

== ENCOUNTER 2024-06-29 13:26 | Outpatient (CLI) | payer MEDICARE, SELFPAY ==
--- NOTE | ~2024-06-29 | XR_ITS ---
EXAMINATION: XR lumbar spine min 4V DATE: 06/29/2024 13:46 INDICATION: Low back pain, unspecified. TECHNIQUE: 5 views of lumbar spine were obtained. COMPARISON: None. FINDINGS: Bone alignment is normal. Vertebral body heights are normal. There is mildly decreased disc height at L2-L3, L3-L4, and L4-L5. There is multilevel facet joint osteoarthritis, moderate to sever e on the right at L3-L4, L4-L5, and L5-S1 and on the left at L5-S1. IMPRESSION: 1. Mild lumbar spondylosis. Reviewed, dictated and finalized at location A. ENGINEER IMPRESSION: 1. Mild lumbar spondylosis.
== END 2024-06-29 13:27 | disposition home or self-care (01) ==
PROVIDERS: PCP Family Medicine; Visit Provider Family Medicine
DX: M43.06 Spondylolysis, lumbar region (principal)
CPT/HCPCS: 72110

== ENCOUNTER 2024-08-04 14:14 | Outpatient (CLI) | payer MEDICARE, SELFPAY ==
--- NOTE | ~2024-08-04 | MM_ITS ---
EXAMINATION: MM screening stacy BI w bette HISTORY: Screening TECHNIQUE: Craniocaudal and mediolateral oblique 3-D tomosynthesis images were obtained and synthetic 2-D images were generated. CAD analysis was submitted and interpreted. COMPARISON: Comparison to multiple prior studies sequentially, with oldest reviewed study dated 06/15. BREAST PARENCHYMAL COMPOSITION: Not dense: There are scattered areas of fibroglandular density. FINDINGS: There is no evidence of suspicious mass, calcification, or architectural distortion to sugg est malignancy in either breast. There has been no suspicious interval change. IMPRESSION: 1. No mammographic evidence of malignancy. 2. Recommend routine screening mammography in one year. BI-RADS Category 1: Negative Reviewed, dictated and finalized at location A. AGENT
--- NOTE | ~2024-08-04 | DEXA_ITS ---
Bone Density Report Name: FARIDA FARIAS Age: 79 Sex: Female Ethnicity: White Date of : 1945 Indication: postmenopausal; screening for osteoporosis; height loss; hysterectomy; Referring Provider: BAYRON, DARRYN [place] Study: Bone densitometry was performed. Exam Date: August 04, 2024 Accession number: [id number] Bone Density: Region BMD T-score Z-score Classification AP Spine(L2, L3, L4) 0.867 -1.9 0.8 Osteopenia Femoral Neck (Left) 0.602 -2.2 0.0 Osteopenia Total Hip (Left) 0.742 -1.6 0.4 Osteopenia Femoral Neck (Right) 0.579 -2.4 -0.2 Osteopenia Total Hip (Right) 0.731 -1.7 0.3 Osteopenia Femoral Neck Mean 0.590 -2.3 -0.1 Osteopenia Total Hip Mean 0.737 -1.7 0.3 Osteopenia World Health Organization criteria for BMD impression classify patients as: Normal (T-score at or above -1.0), Osteopenia (T-score between -1.0 and -2.5), or Osteoporosis (T-score at or below -2.5). 10-year Fracture Risk: FRAX not reported because: Treated for osteoporosis Clinical Information Provided by Patient: Is being treated for osteoporosis Has used the following medications: Vitamin D, Calcium Has the following medical conditions: Hysterectomy Patient maximum height was 65 Menopause Age: 50 No regular weight bearing exercise Does not regularly consume dairy products Drinks caffeinated beverages Onset of menses at age 13 Number of children 2 Impression: The patient has low bone mass, based on the Right Femoral Neck T-score. Discussion: It is important to ask patients whether they are taking their medications and to encourage continued and appropriate compliance with their osteoporosis therapies to reduce fracture risk. It is also important to review their risk factors and encourage appropriate calcium and vitamin D intakes, exercise, fall prevention and other lifestyle measures. Follow-Up: Consider a repeat BMD and Vertebral Fracture Assessment (VFA) exam in 2 years or sooner if medically necessary, to reassess this patient's status. Reported by: SHIMA on 08/04/2024 2:48:00 PM. Reviewed, dictated and finalized at location A.
== END 2024-08-04 14:15 | disposition home or self-care (01) ==
PROVIDERS: PCP Family Medicine; Visit Provider Family Medicine
DX: Z12.31 Encounter for screening mammogram for malignant neoplasm of breast (principal); Z78.0 Asymptomatic menopausal state; M85.89 Other specified disorders of bone density and structure, multiple sites
CPT/HCPCS: 77063; 77067; 77080